=== PATIENT | female | born 1995 | race Caucasian/White ===

== ENCOUNTER 2017-03-17 12:57 | Outpatient (CLI) | payer OTHER ==
[~2017-03-17] VITALS: Ht 154.9 cm; Wt 63.6 kg
[2017-03-17 13:16] VITALS: BP 125/71
[2017-03-17] MEDS ORDERED: PRENATAL TABLE1 EACH PO (13:16)
[2017-03-17 13:17] VITALS: BP 125/71
[2017-03-17 15:02] VITALS: BP 127/66
[2017-03-17 15:32] LABS: ANION GAP 6 MEQ/L (2-14); CHLORIDE 106 MEQ/L (99-109); POTASSIUM 3.8 MEQ/L (3.7-5.4); SAMPLE HEMOLYSIS CHECK 0; SAMPLE ICTERIC CHECK 0; SAMPLE LIPEMIA CHECK 0; SODIUM 135 MEQ/L (136-147); TOTAL BILIRUBIN 0.4 MG/DL (0.0-1.0)
[2017-03-17 15:38] LABS: ALKALINE PHOSPHATASE 170 IU/L (3-129); GFR ESTIMATE (CALCULATED) > 59 mL/min/; GLUCOSE 81 mg/dL (70-99); LACTATE DEHYDROGENASE 122 IU/L (20-246); UREA NITROGEN (BUN) 6 mg/dL (9-23); URIC ACID 2.7 mg/dL (3.1-9.2)
[2017-03-17 15:39] LABS: EOSINOPHIL (%) 0.3 % (0-5); HEMATOCRIT 31.5 % (36.0-46.0); IMMATURE GRANULOCYTE (%) 0.9 % (0.0-0.7); IMMATURE GRANULOCYTE COUNT 0.1 K/uL; LYMPHOCYTE COUNT 1.9 K/uL (1.0-2.8); MCH 21.9 PG (29.0-34.0); MCHC 30.8 G/DL (30.0-36.0); MCV 71.3 FL (83-99); MEAN PLAT.VOLUME 10.7 uM^3 (9.5-12.4); MONOCYTE (%) 10.6 % (3-12); MONOCYTE COUNT 1.3 K/uL (0-0.8); NEUTROPHIL (%) 72.5 % (45-76); PLATELET COUNT 355 K/uL (156-360); RBC DIS.WIDTH-CV 14.9 % (11.8-14.6); RBC DIS.WIDTH-SD 38.3 % (39-53); RED BLOOD COUNT 4.42 M/uL (3.80-5.20); WHITE BLOOD COUNT 12.4 K/uL (4.1-10.2)
[2017-03-17 15:45] LABS: ADD MIUA? YES; BILIRUBIN NEGATIVE; BLOOD NEGATIVE; COLOR YELLOW ((YELLOW)); GLUCOSE (STRIP) NEGATIVE; KETONES NEGATIVE; LEUKOCYTES LARGE; NITRITE NEGATIVE; PROTEIN (STRIP) NEGATIVE; SPECIFIC GRAVITY 1.015 (1.000-1.030)
[2017-03-17 15:57] LABS: AMPHETAMINE NEGATIVE (500 ng/mL); BARBITURATES NEGATIVE (200 ng/mL); BENZODIAZEPINES NEGATIVE (150 ng/mL); COCAINE NEGATIVE (150 ng/mL); INTERNAL CONTROLS VALID? YES; METHADONE NEGATIVE (200 ng/mL); METHAMPHETAMINE NEGATIVE (500 ng/mL); OPIATES (MORPHINE) NEGATIVE (100 ng/mL); OXYCODONE NEGATIVE (100 ng/mL); PHENCYCLIDINE NEGATIVE (25 ng/mL); PROPOXYPHENE NEGATIVE (300 ng/mL); THC CANNABINOIDS NEGATIVE (50 ng/mL); TRICYCLIC ANTIDEPRESSANTS NEGATIVE (300 ng/mL)
[2017-03-17 16:34] LABS: RED BLOOD CELLS 0-5 /HPF (0-5); WHITE BLOOD CELLS 15-20 /HPF (0-5)
[2017-03-17 16:35] LABS: AMORPHOUS URATES CRYSTALS 3+; BACTERIA 2+ /HPF; EPITHELIAL CELLS 2+ /HPF; MUCUS NONE SEEN /LPF
[2017-03-17 17:07] LABS: UR CREATININE CONCENTRATION 113.5 MG/DL
[2017-03-17 19:26] VITALS: BP 132/65
[2017-03-17 23:41] VITALS: BP 116/54
[2017-03-18 07:11] VITALS: BP 114/56
[2017-03-18 11:38] VITALS: BP 128/71
[2017-03-18] MEDS ORDERED: TERAZOL 745 GM VG (13:58)
[2017-03-18] MEDS ORDERED: FEOSOL325 MG PO (13:58)
[2017-03-18 15:30] VITALS: BP 126/67
== END 2017-03-18 16:55 | disposition home or self-care (01) ==
LOC: LDRP-OP 12:57 → 2WEST 12:58 → LDRP-OP 05-15 12:26
PROVIDERS: Advanced Practice Midwife
DX: O36.5930 Maternal care for other known or suspected poor fetal growth, third trimester, not applicable or unspecified (principal); O36.8930 Maternal care for other specified fetal problems, third trimester, not applicable or unspecified; O41.03X0 Oligohydramnios, third trimester, not applicable or unspecified; O99.013 Anemia complicating pregnancy, third trimester; O23.593 Infection of other part of genital tract in pregnancy, third trimester; B37.9 Candidiasis, unspecified; Z3A.36 36 weeks gestation of pregnancy
CPT/HCPCS: 59025; 76818; 80053; 81003; 82570; 83615; 84156; 84550; 85025; 87086; G0378; J0702; J7120

== ENCOUNTER 2017-04-09 08:10 | Inpatient (IN) | payer OTHER ==
[2017-04-09] VITALS (26 sets, daily range): BP systolic 115–159; BP diastolic 59–85
[~2017-04-09] VITALS: Ht 157.5 cm; Wt 67.5 kg
[~2017-04-09 08:10] MED LIST: FEOSOL325 MG PO; PRENATAL TABLE1 EACH PO; TERAZOL 745 GM VG
[2017-04-09 09:24] LABS: BASOPHIL (%) 0.2 % (0-1); EOSINOPHIL (%) 0.3 % (0-5); HEMATOCRIT 34.6 % (36.0-46.0); HEMOGLOBIN 10.7 G/DL (11.9-15.5); IMMATURE GRANULOCYTE (%) 0.6 % (0.0-0.7); LYMPHOCYTE COUNT 2.1 K/uL (1.0-2.8); MCH 22.6 PG (29.0-34.0); MCHC 30.9 G/DL (30.0-36.0); MCV 73.2 FL (83-99); MONOCYTE (%) 11.2 % (3-12); NEUTROPHIL (%) 63.7 % (45-76); NEUTROPHIL COUNT 5.5 K/uL (1.8-6.4); PLATELET COUNT 296 K/uL (156-360); RBC DIS.WIDTH-CV 20.7 % (11.8-14.6); RBC DIS.WIDTH-SD 53.5 % (39-53); RED BLOOD COUNT 4.73 M/uL (3.80-5.20); WHITE BLOOD COUNT 8.6 K/uL (4.1-10.2)
[2017-04-09 12:20] LABS: AMPHETAMINE NEGATIVE (500 ng/mL); BARBITURATES NEGATIVE (200 ng/mL); BENZODIAZEPINES NEGATIVE (150 ng/mL); BUPRENORPHINE NEGATIVE (10 ng/mL); COCAINE NEGATIVE (150 ng/mL); METHADONE NEGATIVE (200 ng/mL); METHAMPHETAMINE NEGATIVE (500 ng/mL); OPIATES (MORPHINE) NEGATIVE (100 ng/mL); OXYCODONE NEGATIVE (100 ng/mL); PHENCYCLIDINE NEGATIVE (25 ng/mL); PROPOXYPHENE NEGATIVE (300 ng/mL); THC CANNABINOIDS NEGATIVE (50 ng/mL); TRICYCLIC ANTIDEPRESSANTS NEGATIVE (300 ng/mL)
[2017-04-10 06:29] LABS: BASOPHIL (%) 0.2 % (0-1); EOSINOPHIL (%) 0.2 % (0-5); HEMATOCRIT 32.6 % (36.0-46.0); HEMOGLOBIN 9.8 G/DL (11.9-15.5); IMMATURE GRANULOCYTE (%) 0.5 % (0.0-0.7); LYMPHOCYTE (%) 21.7 % (15-42); LYMPHOCYTE COUNT 4.1 K/uL (1.0-2.8); MCH 22.2 PG (29.0-34.0); MCHC 30.1 G/DL (30.0-36.0); MCV 73.8 FL (83-99); MONOCYTE (%) 9.5 % (3-12); MONOCYTE COUNT 1.8 K/uL (0-0.8); NEUTROPHIL (%) 67.9 % (45-76); NEUTROPHIL COUNT 12.8 K/uL (1.8-6.4); PLATELET COUNT 327 K/uL (156-360); RBC DIS.WIDTH-CV 20.7 % (11.8-14.6); RBC DIS.WIDTH-SD 54.2 % (39-53); RED BLOOD COUNT 4.42 M/uL (3.80-5.20); WHITE BLOOD COUNT 18.9 K/uL (4.1-10.2)
[2017-04-10 23:00] VITALS: BP 131/80
[2017-04-11] MEDS ORDERED: IBUPROFEN800 MG PO (08:36)
== END 2017-04-11 13:47 | disposition home or self-care (01) | DRG 775 ==
LOC: LDRP-OP 08:10 → 2WEST 08:12 → LDRP-OP 21:53 → 2WEST 04-11 13:47 → LDRP-OP 05-15 21:04
PROVIDERS: Advanced Practice Midwife
PROC: 3E0R3BZ Introduction of Anesthetic Agent into Spinal Canal, Percutaneous Approach (ICD-10-PCS; principal; 2017-04-09)
PROC: 0UQMXZZ Repair Vulva, External Approach (ICD-10-PCS; principal; 2017-04-09)
PROC: 00HU33Z Insertion of Infusion Device into Spinal Canal, Percutaneous Approach (ICD-10-PCS; principal; 2017-04-09)
PROC: 10E0XZZ Delivery of Products of Conception, External Approach (ICD-10-PCS; principal; 2017-04-09)
PROC: 3E033VJ Introduction of Other Hormone into Peripheral Vein, Percutaneous Approach (ICD-10-PCS; principal; 2017-04-09)
DX: O36.5930 Maternal care for other known or suspected poor fetal growth, third trimester, not applicable or unspecified (principal); O70.0 First degree perineal laceration during delivery; O99.02 Anemia complicating childbirth; D64.9 Anemia, unspecified; Z3A.39 39 weeks gestation of pregnancy; Z37.0 Single live birth; Z82.49 Family history of ischemic heart disease and other diseases of the circulatory system; Z83.3 Family history of diabetes mellitus
CPT/HCPCS: 85025; C1755; J1050; J2405; J7120